=== PATIENT | male | born 1965 | race Caucasian/White ===

== ENCOUNTER 2017-04-29 20:32 | Emergency (ER) | payer OTHER ==
[~2017-04-29] VITALS: Ht 175.3 cm; Wt 90.6 kg
[2017-04-29 21:07] LABS: BASOPHIL (%) 0.4 % (0-1); BASOPHIL COUNT 0.1 K/uL (0-0.1); EOSINOPHIL (%) 0.5 % (0-5); EOSINOPHIL COUNT 0.1 K/uL (0-0.3); HEMATOCRIT 43.2 % (38.0-50.0); HEMOGLOBIN 15.5 G/DL (12.5-16.6); IMMATURE GRANULOCYTE (%) 0.5 % (0.0-0.7); LYMPHOCYTE (%) 15.2 % (15-42); LYMPHOCYTE COUNT 2.3 K/uL (1.0-2.8); MCH 30.2 PG (29.0-34.0); MCHC 35.9 G/DL (30.0-36.0); MCV 84.2 FL (86-99); MONOCYTE COUNT 0.8 K/uL (0-0.8); NEUTROPHIL (%) 78.4 % (45-76); PLATELET COUNT 286 K/uL (156-360); RBC DIS.WIDTH-CV 12.2 % (11.8-14.6); RBC DIS.WIDTH-SD 36.8 % (39-53); RED BLOOD COUNT 5.13 M/uL (4.00-5.50); WHITE BLOOD COUNT 15.3 K/uL (4.1-10.2)
[2017-04-29 21:16] LABS: AMYLASE 113 IU/L (1-118); CHLORIDE 104 mEq/L (99-109); POTASSIUM 3.8 mEq/L (3.7-5.4); SODIUM 141 mEq/L (136-147)
[2017-04-29 21:18] LABS: GLUCOSE 96 mg/dL (70-99)
[2017-04-29 21:21] LABS: SERUM ETHYL ALCOHOL < 10 mg/dL
[2017-04-29 21:22] LABS: GFR ESTIMATE (CALCULATED) > 59 mL/min/ (58.99-99999)
[2017-04-29 21:23] LABS: UREA NITROGEN (BUN) 20 mg/dL (9-23)
[2017-04-29 21:25] LABS: LIPASE 46 U/L (1.0-51.0)
[2017-04-29] MEDS ORDERED: NORCO 5/3251 TABLET PO (22:48)
[2017-04-29 23:04] LABS: CHLORIDE 106 mEq/L (99-109); POTASSIUM 3.7 mEq/L (3.7-5.4); SODIUM 140 mEq/L (136-147)
[2017-04-29 23:05] LABS: GLUCOSE 107 mg/dL (70-99)
[2017-04-29 23:09] LABS: CREATININE 0.9 mg/dL (0.6-1.3); GFR ESTIMATE (CALCULATED) > 59 mL/min/ (58.99-99999)
[2017-04-29 23:10] LABS: UREA NITROGEN (BUN) 20 mg/dL (9-23)
[2017-04-29 23:32] VITALS: BP 120/91
== END 2017-04-29 23:37 | disposition home or self-care (01) ==
LOC: EME 20:32 → TRA 20:32
PROVIDERS: Emergency Medicine Emergency Medical Services
DX: S01.411A Laceration without foreign body of right cheek and temporomandibular area, initial encounter (principal); S01.111A Laceration without foreign body of right eyelid and periocular area, initial encounter; S09.90XA Unspecified injury of head, initial encounter; R11.0 Nausea; V00.322A Snow-skier colliding with stationary object, initial encounter; Y93.23 Activity, snow (alpine) (downhill) skiing, snowboarding, sledding, tobogganing and snow tubing; Z23 Encounter for immunization; I10 Essential (primary) hypertension
CPT/HCPCS: 70450; 70486; 72040; 72125; 80048; 80048 91; 81003; 82150; 83690; 85025; 86850; 86900; 86901; 99281; 99285; G0480; J2270; J2405